=== PATIENT | male | born 1985 | race Caucasian/White ===

== ENCOUNTER 2023-12-01 16:41 | Inpatient (IN) | payer OTHER ==
[2023-12-01 17:33] VITALS: BMI 26.6
[2023-12-01] MEDS ORDERED: guaiFENesin 600 MG TABLET.ER (FP) PO PRN (20:31)
[2023-12-01] MEDS ORDERED: DICYCLOMINE HCL 10 MG CAPSULE PO PRN (20:31)
[2023-12-01] MEDS ORDERED: BENZONATATE 200 MG CAPSULE PO PRN (20:31)
[2023-12-01] MEDS ORDERED: BISMUTH SUBSALICYLATE 524 MG/30 ML PO PRN (20:31)
[2023-12-01] MEDS ORDERED: IBUPROFEN 400 MG TABLET (FP) PO PRN (20:31)
[2023-12-01] MEDS ORDERED: METHOCARBAMOL 500 MG TABLET PO PRN (20:31)
[2023-12-01] MEDS ORDERED: POLYETHYLENE GLYCOL (HEALTHYLAX) 3350 17 GM PACKET PO PRN (20:31)
[2023-12-01] MEDS ORDERED: BENZOCAINE/MENTHOL (CHLORASEPTIC ) LOZENGE MM PRN (20:31)
[2023-12-01] MEDS ORDERED: ONDANSETRON *ODT* 4 MG TABLET SL PRN (20:31)
[2023-12-01] MEDS ORDERED: NALOXONE HCL (KLOXXADO) 8 MG SPRAY NS PRN (20:31)
[2023-12-01] MEDS ORDERED: LOPERAMIDE HCL 2 MG CAPSULE PO PRN (20:31)
[2023-12-01] MEDS ORDERED: IBUPROFEN 600 MG TABLET (FP) PO PRN (20:31)
[2023-12-01] MEDS ORDERED: NALOXONE HCL 0.4 MG/ML VIAL IM PRN (20:31)
[2023-12-01] MEDS: diazePAM 5 MG TABLET PO SCH (22:44)
[2023-12-01] MEDS: levETIRAcetam 250 MG TABLET PO SCH (22:45)
[2023-12-01] MEDS: THIAMINE HCL 100 MG TABLET (FP) PO SCH (22:45)
[2023-12-01] MEDS: MELATONIN 5 MG TABLETS PO SCH (22:46)
[2023-12-01] MEDS: NICOTINE POLACRILEX 2 MG GUM BUC PRN (23:23)
[2023-12-02] MEDS: hydrOXYzine PAMOATE 25 MG CAPSULE (FP) PO PRN
[2023-12-02] MEDS: diazePAM 5 MG TABLET PO PRN (02:30)
[2023-12-02] MEDS: MAG HYDROX/AL HYDROX/SIMETH 30 ML UNIT-DOSE CUP PO PRN (05:39)
[2023-12-02] MEDS: PRENATAL VITAMINS W/ FOLIC ACID TABLET (FP) PO SCH (09:30)
[2023-12-02] MEDS: methaDONE HCL 40 MG DISPERSABLE TABLET PO SCH (09:30)
[2023-12-02] MEDS: NICOTINE 21 MG/24 HOURS TOPICAL PATCH TD SCH (09:30)
[2023-12-02 10:54] LABS: HEMATOCRIT 37.1 % (35.4-49); HEMOGLOBIN 12.4 GM/dL (11.7-16.9); MCH 27.2 pg (25.7-33.7); MCHC 33.3 g/dl (32.0-35.9); MEAN CELL VOLUME 81.6 fl (80-96); MEAN PLT VOLUME 9.4 fl (7.5-11.1); PLATELET COUNT 235 10^3/uL (134-434); RBC 4.55 M/mm3 (4.00-5.60); RDW 13.5 % (11.9-15.9); WHITE BLOOD COUNT 6.3 K/mm3 (4.0-10.0)
[2023-12-02 11:01] LABS: CHLORIDE 101 mmol/L (98-107); POTASSIUM 4.4 mmol/L (3.5-5.1); SODIUM 138 mmol/L (136-145)
[2023-12-02 11:11] LABS: CALCIUM 9.2 mg/dL (8.5-10.1)
[2023-12-02 11:12] LABS: ALBUMIN 3.4 g/dl (3.4-5.0); ANION GAP 6 mmol/L (4-13); BLOOD UREA NITROGEN 18.5 mg/dL (7-18); CO2 31 mmol/L (21-32); GLUCOSE,RANDOM 81 mg/dL (74-106)
[2023-12-02 11:15] LABS: CREATININE 0.8 mg/dL (0.55-1.3); SGOT/AST 37 U/L (15-37); SGPT/ALT 58 U/L (13-61)
[2023-12-02 11:16] LABS: TOT PROT 6.9 g/dl (6.4-8.2)
[2023-12-02 11:17] LABS: BILIRUBIN,TOTAL 0.3 mg/dL (0.2-1)
[2023-12-02 11:18] LABS: ALK PHOS 121 U/L (45-117)
[2023-12-02] MEDS: GABAPENTIN 400 MG CAPSULE PO SCH (15:05)
[2023-12-02] MEDS: QUEtiapine FUMARATE 100 MG TABLET (FP) PO SCH (22:12)
[2023-12-02] MEDS: levETIRAcetam 500 MG TABLET (FP) PO SCH (22:12)
[2023-12-03] MEDS: diazePAM 5 MG TABLET PO SCH (05:20)
[2023-12-03] MEDS ORDERED: FLUoxetine HCL 10 MG CAPSULE PO SCH (10:00)
[2023-12-03] MEDS: FLUoxetine HCL 20 MG CAPSULE PO SCH (10:38)
[2023-12-03 12:13] LABS: HIV INTERPRETATION NEGATIVE (NEGATIVE)
[2023-12-03] MEDS: LORazepam 1 MG TABLET PO PRN (13:10)
[2023-12-03] MEDS: LORazepam 1 MG TABLET PO SCH (17:13)
[2023-12-04] MEDS ORDERED: LORazepam 0.5 MG TABLET PO PRN
[2023-12-04] MEDS: LORazepam 0.5 MG TABLET PO SCH (05:41)
[2023-12-04] MEDS ORDERED: diazePAM 5 MG TABLET PO SCH (06:00)
[2023-12-04] MEDS: ACETAMINOPHEN 325 MG TABLET (FP) PO PRN (17:06)
[2023-12-05] MEDS: MAGNESIUM HYDROX 2400MG/30ML ORAL SUSPENSION 30 ML CUP PO PRN (02:57)
[2023-12-05] MEDS ORDERED: diazePAM 5 MG TABLET PO ONE (06:00)
[2023-12-05 09:10] VITALS: BP 125/80; PULSE 99; RESP 18; TEMP 97.7
== END 2023-12-05 10:03 | disposition home or self-care (01) | DRG 773 ==
LOC: YASAS 16:41 → Y3N 21:42
PROVIDERS: ADMIT Allergy & Immunology; ATTEND Surgery
PROC: HZ2ZZZZ Detoxification Services for Substance Abuse Treatment (ICD-10-PCS; principal; 2023-12-01)
DX: F10.230 Alcohol dependence with withdrawal, uncomplicated (principal); F11.20 Opioid dependence, uncomplicated; F14.20 Cocaine dependence, uncomplicated; F13.20 Sedative, hypnotic or anxiolytic dependence, uncomplicated; F12.20 Cannabis dependence, uncomplicated; F17.210 Nicotine dependence, cigarettes, uncomplicated; F31.9 Bipolar disorder, unspecified; G40.909 Epilepsy, unspecified, not intractable, without status epilepticus; I10 Essential (primary) hypertension; E11.9 Type 2 diabetes mellitus without complications; M54.50 Low back pain, unspecified; G89.29 Other chronic pain; Z87.820 Personal history of traumatic brain injury; Z86.59 Personal history of other mental and behavioral disorders
CPT/HCPCS: 36415; 80053; 80307; 85027; 86780; 87389; 87635; 93005; 93010